=== PATIENT | female | born 1960 | race American Indian/Alaskan Native ===

== ENCOUNTER 2019-07-27 06:46 | Emergency (ER) | payer OTHER ==
[2019-07-27] MEDS ORDERED: ASPIRIN 325 MG TAB PO ONE (07:09)
[2019-07-27 07:27] LABS: Basophils % (Auto) 0.7 % (0.0-1.8); Eosinophils # (Auto) 0.3 K/mm3 (0.0-0.4); Eosinophils % (Auto) 5.3 % (0.0-4.3); Hematocrit 37.8 % (30.3-42.9); Hemoglobin 12.8 gm/dl (10.1-14.3); Lymphocytes # (Auto) 1.5 K/mm3 (1.2-5.4); Lymphocytes % (Auto) 28.2 % (13.4-35.0); Mean Corpuscular HGB Conc 34 % (30-34); Mean Corpuscular Volume 89 fl (79-97); Monocytes # (Auto) 0.5 K/mm3 (0.0-0.8); Platelet Count 130 K/mm3 (140-440); Red Blood Count 4.27 M/mm3 (3.65-5.03); Red Cell Distribution Width 12.5 % (13.2-15.2)
--- NOTE | 2019-07-27 07:42 | XRay Report ---
CHEST 2 VIEWS INDICATION / CLINICAL INFORMATION: Chest Pain. COMPARISON: None available. FINDINGS: SUPPORT DEVICES: None. HEART / MEDIASTINUM: Heart is normal size. Moderately large retrocardiac hiatal hernia with an air-fl uid level. LUNGS / PLEURA: No significant pulmonary or pleural abnormality. No pneumothorax. ADDITIONAL FINDINGS: No significant additional findings. IMPRESSION: 1. No acute cardiopulmonary findings. 2. Moderately large hiatal hernia. Signer Name: Rebecca Mckeon MD Signed: 07/27/2019 7:37 AM Workstation Name: [id number]
[2019-07-27 07:52] LABS: BUN/Creatinine Ratio 10; Blood Urea Nitrogen 9 mg/dL (7-17); Calcium 9.3 mg/dL (8.4-10.2); Hemolysis Index 13
--- NOTE | 2019-07-27 08:24 | Emergency Department Report ---
- General Chief Complaint: Chest Pain Stated Complaint: CHEST PAIN/COUGH/BACK PAIN Time Seen by Provider: 07/27/19 07:55 Source: patient Mode of arrival: Ambulatory Limitations: No Limitations - History of Present Illness Initial Comments: 59-year-old female cough 1 month. Patient states she saw her PCP at that time, was given prescription for steroids and antibiotics. Patient states her symptoms improved, however have returned over the last 3 days with associated wheezing and chest wall pain with cough. The patient reports history of chronic back pain, however, has recently developed radiating left lower back pain into the buttock for the last few days. Patient denies any weakness or numbness in the legs. She denies fever. MD Complaint: cough -: month(s) (1) Severity: moderate Quality: sharp Consistency: intermittent Improves With: other (steroids and antibiotics) Worsens With: nothing Associated Symptoms: cough, chest pain (with cough). denies: fever, chills, nausea, vomiting - Related Data Previous Rx's Medication Instructions Recorded Last Taken Type Albuterol Sulfate [Proventil Hfa] 2 puff IH Q4HR PRN #1 hfa.aer.ad 07/27/19 Unknown Rx Benzonatate [Tessalon Perles] 100 mg PO Q8HR PRN #20 capsule 07/27/19 Unknown Rx Naproxen [Naprosyn] 500 mg PO BID #20 tablet 07/27/19 Unknown Rx methOCARBAMOL [Robaxin TAB] 500 mg PO Q8HR PRN #20 tablet 07/27/19 Unknown Rx predniSONE [Deltasone] 50 mg PO QDAY #5 tab 07/27/19 Unknown Rx Allergies Allergy/AdvReac Type Severity Reaction Status Date / Time No Known Allergies Allergy Verified 07/27/19 08:01 ED Review of Systems ROS: Stated complaint: CHEST PAIN/COUGH/BACK PAIN Other details as noted in HPI Comment: All other systems reviewed and negative Constitutional: denies: chills, fever Respiratory: cough, wheezing Cardiovascular: chest pain (with cough) Gastrointestinal: denies: nausea, vomiting Musculoskeletal: back pain Neurological: denies: weakness, numbness, paresthesias ED Past Medical Hx - Past Medical History Previous Medical History?: Yes Hx Hypertension: Yes Additional medical history: High Cholesterol - Surgical History Past Surgical History?: No - Social History Smoking Status: Never Smoker Substance Use Type: None - Medications Home Medications: Home Medications Medication Instructions Recorded Confirmed Last Taken Type Albuterol Sulfate [Proventil Hfa] 2 puff IH Q4HR PRN #1 hfa.aer.ad 07/27/19 Unknown Rx Benzonatate [Tessalon Perles] 100 mg PO Q8HR PRN #20 capsule 07/27/19 Unknown Rx Naproxen [Naprosyn] 500 mg PO BID #20 tablet 07/27/19 Unknown Rx methOCARBAMOL [Robaxin TAB] 500 mg PO Q8HR PRN #20 tablet 07/27/19 Unknown Rx predniSONE [Deltasone] 50 mg PO QDAY #5 tab 07/27/19 Unknown Rx ED Physical Exam - General Limitations: No Limitations General appearance: alert, in no apparent distress - Head Head exam: Present: atraumatic, normocephalic - Eye Eye exam: Present: normal appearance, PERRL, EOMI - ENT ENT exam: Present: mucous membranes moist - Neck Neck exam: Present: normal inspection - Respiratory Respiratory exam: Present: normal lung sounds bilaterally. Absent: respiratory distress, wheezes, rales, rhonchi - Cardiovascular Cardiovascular Exam: Present: regular rate, normal rhythm - GI/Abdominal GI/Abdominal exam: Present: soft. Absent: distended, tenderness - Extremities Exam Extremities exam: Present: normal inspection - Back Exam Back exam: Present: paraspinal tenderness (left lower lumbar) - Neurological Exam Neurological exam: Present: alert, oriented X3. Absent: motor sensory deficit (strength BLE 5/5, sensation normal) - Psychiatric Psychiatric exam: Present: normal affect, normal mood - Skin Skin exam: Present: warm, dry, intact, normal color ED Course Vital Signs 07/27/19 07/27/19 07/27/19 06:50 07:04 09:08 Temperature 97.8 F 97.8 F Pulse Rate 84 84 68 Respiratory 18 18 15 Rate Blood Pressure 144/95 144/95 Blood Pressure 139/78 [Left] O2 Sat by Pulse 96 96 98 Oximetry ED Medical Decision Making - Lab Data Result diagrams: 07/27/19 07:14 07/27/19 07:14 - EKG Data -: EKG Interpreted by [facility] EKG shows normal: sinus rhythm, intervals, QRS complexes, ST-T waves Rate: normal - EKG Data Interpretation: no acute changes - Radiology Data Radiology results: report reviewed, image reviewed - Medical Decision Making 49-year-old female with bronchitis. Chest x-ray normal. EKG unremarkable, troponin negative. Patient has chest wall pain with coughing. She also reports left lumbar radiculopathy. Patient is ambulatory, gait is normal, strength and sensation intact in bilateral lower extremities. Patient given prescriptions. Outpatient follow-up advised. Return precautions given. - Differential Diagnosis pneumonia, bronchitis, costochondritis, sciatica Critical care attestation.: If time is entered above; I have spent that time in minutes in the direct care of this critically ill patient, excluding procedure time. ED Disposition Clinical Impression: Bronchitis, Lumbar radiculopathy, acute Disposition: - TO HOME OR SELFCARE Is pt being admited?: No Condition: Stable Instructions: Sciatica (ED), Acute Bronchitis (ED), Lumbar Radiculopathy (ED) Prescriptions: predniSONE [Deltasone] 50 mg PO QDAY #5 tab Naproxen [Naprosyn] 500 mg PO BID #20 tablet Albuterol Sulfate [Proventil Hfa] 2 puff IH Q4HR PRN #1 hfa.aer.ad PRN Reason: Wheezing methOCARBAMOL [Robaxin TAB] 500 mg PO Q8HR PRN #20 tablet PRN Reason: Muscle Spasm Benzonatate [Tessalon Perles] 100 mg PO Q8HR PRN #20 capsule PRN Reason: Cough Referrals: PRIMARY CARE, [Primary Care Provider] - 3-5 Days FLORES LUJAN MD [Staff Physician] - 3-5 Days
[2019-07-27 09:15] VITALS: BP 139/78
== END 2019-07-27 09:10 | disposition home or self-care (01) ==
LOC: ED 06:46
DX: J40 Bronchitis, not specified as acute or chronic (principal); M54.16 Radiculopathy, lumbar region; I10 Essential (primary) hypertension; Z79.899 Other long term (current) drug therapy
CPT/HCPCS: 36415; 71046; 80048; 84484; 85025; 93005; 93010